=== PATIENT | female | born 1955 | race Native Hawaiian/Other Pacific Islander ===

== ENCOUNTER 2022-02-11 13:24 | Observation (INO) | payer OTHER ==
[~2022-02-11] VITALS: Ht 172.7 cm; Wt 93.2 kg
[2022-02-11 15:13] LABS: PLATELET COUNT 247 K/uL (152-353)
[2022-02-11 15:21] VITALS: BP 107/44; TEMP 99; Ht 172.7 cm; Wt 93.2 kg
[2022-02-11 15:37] LABS: POTASSIUM 4.6 mmol/L (3.6-5.2)
[2022-02-11 20:00] VITALS: BP 117/54; TEMP 98.8
[2022-02-12] VITALS (8 sets, daily range): BP systolic 123–155; BP diastolic 56–70; TEMP 97.4–98.6
[2022-02-12 04:06] LABS: PLATELET COUNT 265 K/uL (152-353)
[2022-02-12 04:29] LABS: POTASSIUM 4.5 mmol/L (3.6-5.2)
[2022-02-12] MEDS ORDERED: ALBUTEROL108 MCG/AC INH (07:09)
[2022-02-12] MEDS ORDERED: DICL75TA4 PO (07:11)
[2022-02-12] MEDS ORDERED: HYDR25TA60 PO (07:12)
[2022-02-12] MEDS ORDERED: METHYLPRED4 M1 PO (07:13)
[2022-02-12] MEDS ORDERED: OMEPRAZOLE40 MG PO (07:14)
[2022-02-12] MEDS ORDERED: ONDA4TAB3 PO (07:15)
[2022-02-12] MEDS ORDERED: TIZANIDINE HYDRO4 M1 PO (07:17)
[2022-02-12] MEDS ORDERED: ZINC50 M1 PO (07:18)
[2022-02-13 04:14] VITALS: BP 138/60; TEMP 98.1
[2022-02-13 05:48] LABS: PLATELET COUNT 274 K/uL (152-353)
[2022-02-13 05:58] LABS: POTASSIUM 4.6 mmol/L (3.6-5.2)
[2022-02-13 08:00] VITALS: BP 142/73; TEMP 97.8
[2022-02-13 12:00] VITALS: BP 126/59; TEMP 97.5
[2022-02-13 16:00] VITALS: BP 113/55; TEMP 97.5
[2022-02-13 20:00] VITALS: BP 110/51; TEMP 98.5
[2022-02-14 00:06] VITALS: BP 116/55; TEMP 97.3
[2022-02-14 04:15] VITALS: BP 132/64; TEMP 97.7
[2022-02-14] MEDS ORDERED: TRAMADOL HYDROC50 MG PO (04:42)
[2022-02-14] MEDS ORDERED: LISI10TA11 PO (04:42)
[2022-02-14] MEDS ORDERED: SIMV20TA2 PO (04:42)
[2022-02-14] MEDS ORDERED: ASA LOW DOSE81 MG PO (04:42)
== END 2022-02-14 05:55 | disposition home or self-care (01) ==
LOC: MED/SURG 13:24
PROVIDERS: Internal Medicine; ADMIT Family Medicine; ATTEND Family Medicine
DX: J18.8 Other pneumonia, unspecified organism (principal); U09.9 Post COVID-19 condition, unspecified; U07.1 COVID-19; R11.2 Nausea with vomiting, unspecified; E86.0 Dehydration; R51.9 Headache, unspecified; I10 Essential (primary) hypertension; K21.9 Gastro-esophageal reflux disease without esophagitis; E78.00 Pure hypercholesterolemia, unspecified; R05.8 Other specified cough; R10.9 Unspecified abdominal pain
CPT/HCPCS: 36415; 80053; 82728; 82948; 83036; 83735; 84100; 85027; 85379; 86140; 87015; 87040; 87045; 87070; 87205; 87328; 87329; 87635; 87899; 93005; 94667; 94668; 94760; 96360; 96361; 96367; 96372; 96374; 96375; 99220; G0378; G0379; J0456; J0696; J1650; J1885; J2765; J2920; U0003

== ENCOUNTER 2022-06-24 09:12 | Outpatient (CLI) | payer OTHER ==
[~2022-06-24 09:12] MED LIST: ALBUTEROL108 MCG/AC INH; ASA LOW DOSE81 MG PO; DICL75TA4 PO; HYDR25TA60 PO; LISI10TA11 PO; METHYLPRED4 M1 PO; OMEPRAZOLE40 MG PO; ONDA4TAB3 PO; SIMV20TA2 PO; TIZANIDINE HYDRO4 M1 PO; TRAMADOL HYDROC50 MG PO; ZINC50 M1 PO
== END 2022-06-24 19:17 | disposition home or self-care (01) ==
LOC: US 09:12
PROVIDERS: ATTEND Nurse Practitioner Primary Care
DX: R16.0 Hepatomegaly, not elsewhere classified (principal)

== ENCOUNTER 2022-07-05 08:46 | Outpatient (CLI) | payer OTHER | END 2022-07-05 21:33 | disposition home or self-care (01) | LOC: RAD 08:46 | PROVIDERS: ATTEND Nurse Practitioner Primary Care | DX: Z13.820 Encounter for screening for osteoporosis (principal); N95.8 Other specified menopausal and perimenopausal disorders ==

== ENCOUNTER 2023-04-24 17:41 | Observation (INO) | payer OTHER ==
[~2023-04-24] VITALS: Ht 172.7 cm; Wt 100.0 kg
[2023-04-24 18:00] VITALS: BP 197/84; TEMP 97.7
[2023-04-24 18:22] LABS: PLATELET COUNT 267 K/uL (152-353)
[2023-04-24 18:31] LABS: POTASSIUM 3.5 mmol/L (3.6-5.2); SODIUM 140 mmol/L (136-145)
[2023-04-24 18:35] LABS: PARTIAL THROMBOPLASTIN TIME 22.9 SECONDS (23.9-36.7)
[2023-04-24 19:00] VITALS: BP 194/81
[2023-04-24 19:30] VITALS: BP 149/65
[2023-04-24 21:55] VITALS: BP 143/63; TEMP 97.6; Ht 172.7 cm; Wt 100.0 kg
[2023-04-25] VITALS: BP 138/73; TEMP 97.8
[2023-04-25 03:37] VITALS: BP 131/68; TEMP 97.5
[2023-04-25 08:00] VITALS: BP 127/57; TEMP 97.5
[2023-04-25] MEDS ORDERED: OMEPRAZOLE40 MG PO (08:13)
[2023-04-25] MEDS ORDERED: TYLENOL PO (08:14)
[2023-04-25] MEDS ORDERED: ASPIRIN/ENTERIC81 MG PO (08:15)
[2023-04-25] MEDS ORDERED: TUMERIC PO (08:15)
[2023-04-25] MEDS ORDERED: VITAMIN D1000 UNI1 PO (08:16)
[2023-04-25] MEDS ORDERED: MIRALAX17 GM PO (08:17)
[2023-04-25] MEDS ORDERED: KRILL OIL PO (08:17)
[2023-04-25 10:10] LABS: PLATELET COUNT 266 K/uL (152-353)
[2023-04-25 10:24] LABS: POTASSIUM 3.7 mmol/L (3.6-5.2)
[2023-04-25 12:00] VITALS: BP 147/68; TEMP 98.4
== END 2023-04-25 12:42 | disposition home or self-care (01) ==
LOC: ED 17:41 → MED/SURG 20:29
PROVIDERS: ADMIT Nurse Practitioner Family; ATTEND Family Medicine
DX: R07.89 Other chest pain (principal); M54.59 Other low back pain; R51.9 Headache, unspecified; R60.0 Localized edema; I10 Essential (primary) hypertension
CPT/HCPCS: 36415; 80053; 82550; 83880; 84443; 84484; 85027; 85610; 85730; 93005; 96374; 96375; 96376; 99221; 99284; G0378; J2060; J3490

== ENCOUNTER 2023-05-09 13:39 | Outpatient (CLI) | payer OTHER ==
[~2023-05-09 13:39] MED LIST changes: +ASPIRIN/ENTERIC81 MG PO; +KRILL OIL PO; +MIRALAX17 GM PO; +TUMERIC PO; +TYLENOL PO; +VITAMIN D1000 UNI1 PO
== END 2023-05-09 19:11 | disposition home or self-care (01) ==
LOC: RESP 13:39
PROVIDERS: ATTEND Family Medicine
DX: R07.89 Other chest pain (principal)

== ENCOUNTER 2023-05-11 08:02 | Outpatient (CLI) | payer OTHER ==
[~2023-05-11] VITALS: Ht 172.7 cm; Wt 99.8 kg
== END 2023-05-11 18:58 | disposition home or self-care (01) ==
LOC: NM 08:02
PROVIDERS: ATTEND Family Medicine
DX: R07.89 Other chest pain (principal)
CPT/HCPCS: A9500; J2785

== ENCOUNTER 2023-06-06 09:10 | Outpatient (CLI) | payer OTHER | END 2023-06-06 19:13 | disposition home or self-care (01) | LOC: RAD 09:10 | PROVIDERS: ATTEND Nurse Practitioner Family | DX: M25.531 Pain in right wrist (principal) ==